=== PATIENT | male | born 1990 | race Two or more races ===

== ENCOUNTER → 2020-08-30 16:32 | Outpatient (CLI) | payer OTHER | END | disposition home or self-care (01) | LOC: RAD 16:32 | PROVIDERS: ATTEND Internal Medicine | DX: Z00.00 Encounter for general adult medical examination without abnormal findings (principal) ==

== ENCOUNTER 2020-08-31 07:54 | Outpatient (CLI) | payer OTHER | END 2020-08-31 08:22 | disposition home or self-care (01) | LOC: LAB 07:54 | DX: R10.30 Lower abdominal pain, unspecified (principal) ==

== ENCOUNTER 2020-08-31 08:34 | Outpatient (CLI) | payer OTHER | END 2020-08-31 08:43 | disposition home or self-care (01) | LOC: RAD 08:34 | PROVIDERS: ATTEND Internal Medicine | DX: R91.1 Solitary pulmonary nodule (principal) ==